=== PATIENT | female | born 1935 | race Caucasian/White ===

== ENCOUNTER 2017-06-24 13:26 | Inpatient (IN) | payer MEDICARE, OTHER ==
[~2017-06-24] VITALS: Ht 160 cm; Wt 89.3 kg
[2017-06-24 16:28] LABS: BASOPHILS 0.2 % (0-2); EOSINOPHILS 0.6 % (0-7); HEMATOCRIT 39.6 % (36.0-48.0); HEMOGLOBIN 12.6 g/dL (12-16); IMMATURE GRANULOCYTES 0.2 % (0-5); LYMPHOCYTES 10.8 % (15-50); MCH 28.4 pg (26.0-34.0); MCHC 31.8 g/dL (31.0-37.0); MCV 89.4 fL (80.0-100.0); MEAN PLATELET VOLUME 10.4 fL (7.4-10.4); MONOCYTES 12.7 % (2-11); NEUTROPHILS 75.5 % (40-80); RBC 4.43 10x6/uL (4.00-5.40); RDW 14.2 % (11.5-14.5); WBC 6.6 10x3/uL (4.8-10.8)
[2017-06-24 16:44] LABS: INR 1.07 (0.85-1.17); PROTIME 13.5 SECONDS (11.6-15.0)
[2017-06-24 16:50] LABS: ALBUMIN 3.6 g/dL (3.4-5.0); ANION GAP 17.1 mmol/L (8-16); BILIRUBIN - TOTAL 0.42 mg/dL (0.2-1.3); CALCIUM 9.4 mg/dL (8.5-10.1); CARBON DIOXIDE 25.3 mmol/L (21.0-32.0); POTASSIUM - SERUM 4.4 mmol/L (3.5-5.1)
[2017-06-24 16:54] LABS: PLATELET COUNT 112 10x3/uL (130-400)
[2017-06-24 20:00] VITALS: BP 174/65
[2017-06-25 05:06] LABS: BASOPHILS 0.2 % (0-2); EOSINOPHILS 0.7 % (0-7); HEMATOCRIT 37.1 % (36.0-48.0); IMMATURE GRANULOCYTES 0.2 % (0-5); MCH 28.4 pg (26.0-34.0); MCHC 32.3 g/dL (31.0-37.0); MCV 87.7 fL (80.0-100.0); MEAN PLATELET VOLUME 11.1 fL (7.4-10.4); MONOCYTES 16.8 % (2-11); NEUTROPHILS 64.1 % (40-80); RBC 4.23 10x6/uL (4.00-5.40); RDW 14.2 % (11.5-14.5)
[2017-06-25 05:13] LABS: PLATELET COUNT 137 10x3/uL (130-400); WBC 4.4 10x3/uL (4.8-10.8)
[2017-06-25 05:31] LABS: ALBUMIN 3.2 g/dL (3.4-5.0); ANION GAP 13.6 mmol/L (8-16); BILIRUBIN - TOTAL 0.6 mg/dL (0.2-1.3); CALCIUM 9.4 mg/dL (8.5-10.1); CARBON DIOXIDE 26.4 mmol/L (21.0-32.0); CREATININE - SERUM 0.9 mg/dL (0.6-1.3); PROTEIN - SERUM 6.8 g/dL (6.4-8.2)
[2017-06-25 05:48] VITALS: BP 174/65; BMI 33.7
[2017-06-25] MEDS ORDERED: ZANTAC150 MG PO (08:43)
[2017-06-25] MEDS ORDERED: TEMAZEPAM30 MG PO (08:44)
[2017-06-25] MEDS ORDERED: PRINIVIL20 MG PO (08:44)
[2017-06-25] MEDS ORDERED: GLUCOPHAGE500 MG PO (08:44)
[2017-06-25] MEDS ORDERED: NAMZARIC 7 MG-1 EACH PO (08:45)
[2017-06-25] MEDS ORDERED: PRESERVISION AR1 CAP PO (08:45)
[2017-06-25] MEDS ORDERED: NORVASC2.5 MG PO (08:45)
[2017-06-25] MEDS ORDERED: CALCIUM 500 + D1 TAB PO (08:46)
[2017-06-25] MEDS ORDERED: ACETAMINOPHEN325 MG PO (08:46)
[2017-06-25] MEDS ORDERED: MULTIPLE VITAMI1 TA1 PO (08:46)
[2017-06-25 09:30] VITALS: BP 126/66
[2017-06-25 12:01] VITALS: BP 166/68
[2017-06-25 12:23] VITALS: Ht 160 cm; Wt 89.3 kg
[2017-06-25 16:31] VITALS: BP 135/57
[2017-06-25 20:00] VITALS: BP 150/64
[2017-06-26 05:26] LABS: BASOPHILS 0.2 % (0-2); EOSINOPHILS 1.4 % (0-7); HEMATOCRIT 35.9 % (36.0-48.0); HEMOGLOBIN 11.5 g/dL (12-16); IMMATURE GRANULOCYTES 0.2 % (0-5); MCH 28.3 pg (26.0-34.0); MCV 88.2 fL (80.0-100.0); MEAN PLATELET VOLUME 11.2 fL (7.4-10.4); MONOCYTES 14.8 % (2-11); NEUTROPHILS 63.4 % (40-80); PLATELET COUNT 143 10x3/uL (130-400); RBC 4.07 10x6/uL (4.00-5.40); RDW 14.2 % (11.5-14.5); WBC 4.3 10x3/uL (4.8-10.8)
[2017-06-26 05:56] LABS: ALBUMIN 2.9 g/dL (3.4-5.0); ANION GAP 9.1 mmol/L (8-16); BILIRUBIN - TOTAL 0.55 mg/dL (0.2-1.3); CALCIUM 9.3 mg/dL (8.5-10.1); CARBON DIOXIDE 31.7 mmol/L (21.0-32.0); POTASSIUM - SERUM 3.8 mmol/L (3.5-5.1); PROTEIN - SERUM 6.5 g/dL (6.4-8.2)
[2017-06-26] MEDS ORDERED: HYDROCODON-ACE1 EAC7 PO (14:48)
[2017-06-26 16:21] VITALS: BP 137/60
[2017-06-26 20:00] VITALS: BP 112/66
[2017-06-27] VITALS: BP 140/70
[2017-06-27 04:00] VITALS: BP 148/69
[2017-06-27 06:32] LABS: HEMATOCRIT 34.1 % (36.0-48.0); HEMOGLOBIN 11.1 g/dL (12-16); LYMPHOCYTES 25.1 % (15-50); MCH 28.2 pg (26.0-34.0); MCHC 32.6 g/dL (31.0-37.0); MCV 86.5 fL (80.0-100.0); NEUTROPHILS 60.8 % (40-80); PLATELET COUNT 134 10x3/uL (130-400); RBC 3.94 10x6/uL (4.00-5.40); RDW 13.7 % (11.5-14.5); WBC 3.9 10x3/uL (4.8-10.8)
[2017-06-27 07:09] LABS: ALBUMIN 2.9 g/dL (3.4-5.0); ANION GAP 11.6 mmol/L (8-16); BILIRUBIN - TOTAL 0.6 mg/dL (0.2-1.3); CALCIUM 9.1 mg/dL (8.5-10.1); CARBON DIOXIDE 33.6 mmol/L (21.0-32.0); CREATININE - SERUM 0.8 mg/dL (0.6-1.3); POTASSIUM - SERUM 4.2 mmol/L (3.5-5.1); PROTEIN - SERUM 6.1 g/dL (6.4-8.2)
[2017-06-27 08:05] VITALS: BP 140/70
== END 2017-06-27 13:06 | DRG 200 ==
LOC: D.ER 13:26 → D.MS 18:24
PROVIDERS: Emergency Medicine; Family Medicine; Radiology Diagnostic Radiology
PROC: 0W9930Z Drainage of Right Pleural Cavity with Drainage Device, Percutaneous Approach (ICD-10-PCS; principal; 2017-06-24 15:00)
DX: S27.0XXA Traumatic pneumothorax, initial encounter (principal); S22.41XA Multiple fractures of ribs, right side, initial encounter for closed fracture; I10 Essential (primary) hypertension; I25.10 Atherosclerotic heart disease of native coronary artery without angina pectoris; E78.5 Hyperlipidemia, unspecified; Z95.5 Presence of coronary angioplasty implant and graft; W01.0XXA Fall on same level from slipping, tripping and stumbling without subsequent striking against object, initial encounter; E11.65 Type 2 diabetes mellitus with hyperglycemia

== ENCOUNTER → 2017-06-28 16:33 | Outpatient (CLI) | payer MEDICARE, OTHER ==
[2017-06-25 12:23] VITALS: BMI 33.6
[~2017-06-28 16:33] MED LIST: ACETAMINOPHEN325 MG PO; CALCIUM 500 + D1 TAB PO; GLUCOPHAGE500 MG PO; HYDROCODON-ACE1 EAC7 PO; MULTIPLE VITAMI1 TA1 PO; NAMZARIC 7 MG-1 EACH PO; NORVASC2.5 MG PO; PRESERVISION AR1 CAP PO; PRINIVIL20 MG PO; TEMAZEPAM30 MG PO; ZANTAC150 MG PO
== END | disposition home or self-care (01) ==
LOC: D.RAD 16:33
DX: J93.9 Pneumothorax, unspecified (principal)

== ENCOUNTER 2018-05-04 09:55 | Emergency (ER) | payer MEDICARE, OTHER ==
[2018-05-04 10:04] VITALS: Ht 160 cm
[2018-05-04 10:26] LABS: APPEARANCE CLEAR (CLEAR); BILIRUBIN NEGATIVE (NEGATIVE); COLOR YELLOW (YELLOW); GLUCOSE NEGATIVE (NEGATIVE); KETONE NEGATIVE (NEGATIVE); NITRITE NEGATIVE (NEGATIVE); PROTEIN NEGATIVE (NEGATIVE); SPECIFIC GRAVITY 1.015 (1.005-1.020); UROBILINOGEN NORMAL (NORMAL)
[2018-05-04 10:49] LABS: BASOPHILS 0.3 % (0-2); EOSINOPHILS 0.8 % (0-7); HEMATOCRIT 38.4 % (36.0-48.0); HEMOGLOBIN 12.4 g/dL (12-16); LYMPHOCYTES 22.7 % (15-50); MCH 27.7 pg (26.0-34.0); MCHC 32.3 g/dL (31.0-37.0); MCV 85.9 fL (80.0-100.0); MEAN PLATELET VOLUME 10.7 fL (7.4-10.4); MONOCYTES 12.7 % (2-11); NEUTROPHILS 63.5 % (40-80); RBC 4.47 10x6/uL (4.00-5.40); RDW 14.8 % (11.5-14.5)
[2018-05-04 10:50] LABS: PLATELET COUNT 184 10x3/uL (130-400)
[2018-05-04 11:23] LABS: ALBUMIN 3.5 g/dL (3.4-5.0); ANION GAP 13.4 mmol/L (8-16); BILIRUBIN - TOTAL 0.63 mg/dL (0.2-1.3); CALCIUM 9.3 mg/dL (8.5-10.1); MAGNESIUM - SERUM 1.4 mg/dL (1.8-2.4); POTASSIUM - SERUM 4.4 mmol/L (3.5-5.1); PROTEIN - SERUM 7.4 g/dL (6.4-8.2)
[2018-05-04] MEDS ORDERED: NAPROSYN500 MG PO (12:12)
[2018-05-04 12:47] VITALS: BP 163/76
== END 2018-05-04 12:33 | disposition home or self-care (01) ==
LOC: D.ER 09:55
PROVIDERS: Emergency Medicine
DX: R07.81 Pleurodynia (principal); T14.8XXA Other injury of unspecified body region, initial encounter; X58.XXXA Exposure to other specified factors, initial encounter; Y93.89 Activity, other specified; Y92.89 Other specified places as the place of occurrence of the external cause; F03.90 Unspecified dementia, unspecified severity, without behavioral disturbance, psychotic disturbance, mood disturbance, and anxiety; E11.9 Type 2 diabetes mellitus without complications; I10 Essential (primary) hypertension

== ENCOUNTER 2019-03-30 22:32 | Emergency (ER) | payer MEDICARE, OTHER ==
[~2019-03-30] VITALS: Ht 160 cm; Wt 90.9 kg
[~2019-03-30 22:32] MED LIST changes: +NAPROSYN500 MG PO
[2019-03-30 22:36] VITALS: Ht 160 cm; Wt 90.9 kg
[2019-03-30] MEDS ORDERED: ASPIRIN81 MG PO (22:41)
[2019-03-30] MEDS ORDERED: NAMZARIC 7 MG-1 EACH PO (22:41)
[2019-03-31 02:06] VITALS: BP 184/93
== END 2019-03-31 02:06 ==
LOC: D.ER 22:32
DX: R53.1 Weakness (principal); W19.XXXA Unspecified fall, initial encounter; E11.9 Type 2 diabetes mellitus without complications; I10 Essential (primary) hypertension